=== PATIENT | female | born 1975 | race African-American/Black ===

== ENCOUNTER 2019-11-12 09:11 | Emergency (ER) | payer MEDICAID ==
[~2019-11-12] VITALS: Ht 185.4 cm; Wt 91.6 kg
--- NOTE | 2019-11-12 09:20 | NUR ---
ED Nurse Note: Pt walked into ED from home. Pt reports lower back pain that radiates throughout left leg as well as neck pain and an inability to turn neck properly from side to side. Pt reports that pain started two days ago - cause unknown. Pt resting in room with family. Addendum: 11/12/19 at 0954 by TACHO ED Nurse Note: Pt walked into ED from home. Pt reports lower back pain 10/10 that radiates throughout left leg as well as neck pain and an inability to turn neck properly from side to side. Pt reports that pain started two days ago - cause unknown. Pt resting in room with family.
[2019-11-12] MEDS ORDERED: NKM (09:25)
[2019-11-12 09:32] VITALS: BP 143/82
--- NOTE | 2019-11-12 10:10 | NUR ---
ED Nurse Note: ERMD at bedside.
--- NOTE | 2019-11-12 10:12 | NUR ---
ED Nurse Note: ERMD at bedside assessing pt.
--- NOTE | 2019-11-12 10:20 | NUR ---
ED Nurse Note: ERMD ordered pain medications (see emar) and xray for pt's back. xray pending UA results.
[2019-11-12] MEDS ORDERED: Ketorolac 30mg Inj IV ONE (10:30)
[2019-11-12] MEDS ORDERED: Cyclobenzaprine 10mg Tab ORAL ONE (10:30)
[2019-11-12 10:41] LABS: BASOPHILS % (AUTO) 1.1 % (0.0-2.0); EOSINOPHILS % (AUTO) 3.3 % (0.0-3.0); HEMATOCRIT 42.7 % (37.0-47.0); LYMPHOCYTES % (AUTO) 32.5 % (20.0-45.0); MEAN CORPUSCULAR VOLUME 94 FL (80-99); MONOCYTES % (AUTO) 9.9 % (1.0-10.0); NEUTROPHILS % (AUTO) 53.2 % (45.0-75.0); PLATELET COUNT 241 K/UL (150-450); RED BLOOD COUNT 4.53 M/UL (4.20-5.40); RED CELL DISTRIBUTION WIDTH 11.8 % (11.6-14.8); WHITE BLOOD COUNT 5.3 K/UL (4.8-10.8)
[2019-11-12 10:52] LABS: ANION GAP 7 mmol/L (5-15); BLOOD UREA NITROGEN 8 mg/dL (7-18); CALCIUM 8.9 MG/DL (8.5-10.1); CARBON DIOXIDE 28 MMOL/L (21-32); CHLORIDE 104 MMOL/L (98-107); CREATININE 0.8 MG/DL (0.55-1.30); POTASSIUM 3.8 MMOL/L (3.5-5.1); SODIUM 139 MMOL/L (136-145)
[2019-11-12 10:56] LABS: ALANINE AMINOTRANSFERASE 20 U/L (12-78); ALBUMIN 3.6 G/DL (3.4-5.0); ALBUMIN/GLOBULIN RATIO 0.9 (1.0-2.7); ALKALINE PHOSPHATASE 88 U/L (46-116); ASPARTATE AMINO TRANSFERASE 13 U/L (15-37); BILIRUBIN,TOTAL 0.5 MG/DL (0.2-1.0); CREATINE KINASE 55 U/L (26-308)
[2019-11-12 10:58] LABS: APPEARANCE,URINE CLOUDY; BILIRUBIN, URINE NEGATIVE (NEGATIVE); COLOR,URINE PALE YELLOW; GLUCOSE, URINE (UA) NEGATIVE (NEGATIVE); KETONES,URINE 1+ (NEGATIVE); LEUKOCYTE ESTERASE ,URINE 1+ (NEGATIVE); NITRITE,URINE POSITIVE (NEGATIVE); PH,URINE 6 (4.5-8.0); PROTEIN,URINE NEGATIVE (NEGATIVE); UROBILINOGEN,URINE NORMAL MG/DL (0.0-1.0)
--- NOTE | 2019-11-12 11:20 | NUR ---
ED Nurse Note: Pt taken to xray
--- NOTE | 2019-11-12 11:45 | NUR ---
ED Nurse Note: Pt returned from xray. Pt resting in bed. Awaiting xray results.
--- NOTE | 2019-11-12 12:02 | Diagnostic Imaging Report ---
Indication: Pain Technique: XRAY L [facility]ine [facility] Comparison: None Findings: Bone mineralization within normal limits. There are 5 nonrib-bearing lumbar-type vertebral bodies, assuming 12 paired ribs. Number lordosis is maintained, without evidence of spondylolisthesis. No significant disc space narrowing is appreciated. Question very mild facet arthropathy at L5-S1. No acute lumbar spine fractures identified. Vertebral body heights are maintained. Pelvic phleboliths are noted. Impression: No evidence of acute fracture or traumatic malalignment.
--- NOTE | 2019-11-12 14:13 | Emergency Room Report ---
History of Present Illness General Chief Complaint: Pain Source: Patient Present Illness HPI The patient states that she developed low back pain a couple days ago. She states that the pain also radiates down her left leg. She also gets tingling and numbness in that leg. She denies injury. She denies recent illness. Denies fever or chills. She denies nausea or vomiting. She denies dysuria or hematuria. She denies loss of bowel or bladder control. She denies night sweats. She has no other complaints. Allergies: Coded Allergies: No Known Allergies (Unverified , 11/12/19) Patient History Past Medical History: see triage record Social History: Denies: smoking, alcohol use, drug use Last Menstrual Period: Oct 21, 2019 Now: No Reviewed Nursing Documentation: PMH: Agreed; PSxH: Agreed Nursing Documentation-PMH Past Medical History: No Stated History Review of Systems All Other Systems: negative except mentioned in HPI Physical Exam Vital Signs Date Time Temp Pulse Resp B/P (MAP) Pulse Ox O2 Delivery O2 Flow Rate FiO2 11/12/19 09:19 98.1 65 19 138/84 (102) 98 Room Air Sp02 EP Interpretation: reviewed, normal General Appearance: no apparent distress, alert, GCS 15, non-toxic Head: normocephalic, atraumatic Eyes: bilateral eye normal inspection, bilateral eye PERRL ENT: hearing grossly normal, normal pharynx, no angioedema, normal voice Neck: full range of motion, supple/symm/no masses Respiratory: chest non-tender, lungs clear, normal breath sounds, no respiratory distress, no retraction, no accessory muscle use, speaking full sentences Cardiovascular #1: regular rate, rhythm, no edema Gastrointestinal: normal bowel sounds, non tender, soft, non-distended, no guarding, no rebound Rectal: deferred Musculoskeletal: back normal, normal range of motion, gait/station normal, tender - TTP along the paraspinal m. of the L-spine on the L. TTP along the L. trapezius m. Neurologic: alert, motor strength/tone normal, oriented x3, sensory intact, responsive, speech normal Psychiatric: judgement/insight normal, memory normal, mood/affect normal, no suicidal/homicidal ideation Skin: no rash, normal color Medical Decision Making Diagnostic Impression: Primary Impression: Muscle spasm Additional Impressions: Sciatica UTI (urinary tract infection) ER Course This patient has a clinical presentation consistent with mechanical back pain. There are no red flags on physical exam. The patient denies any concerning features such as trauma, fevers, night sweats, history of malignancy, pain worse at night, IV drug abuse, urinary/fecal incontinence or retention, focal weakness or change in sensation, or refractory pain. Given these pertinent negatives in the history and physical exam an emergent cause of the back pain such as epidural abscess, metastasis to bone, cauda equina syndrome, and fracture is less likely. I also doubt emergent cardiovascular cause of back pain such as aortic dissection a ruptured abdominal aortic aneurysm given patient with equal pulses in all 4 extremities with no diastolic murmur or pulsatile abdominal mass. Lumbar spine x-ray was unremarkable. The patient was counseled that, though unlikely, the possibility of an emergent cause of back pain may still be present and that the patient should return immediately if symptoms persist or worsen. The symptoms are reproducible with movement. Patient had a benign evaluation and neurologic examination. Patient did have a urinalysis that was contaminated unfortunately. As a precaution, I will give the patient a course of antibiotics. I suspect this is related to contamination of the sample. No emergency etiology was identified. Laboratory Tests Test 11/12/19 10:30 White Blood Count 5.3 K/UL (4.8-10.8) Red Blood Count 4.53 M/UL (4.20-5.40) Hemoglobin 14.0 G/DL (12.0-16.0) Hematocrit 42.7 % (37.0-47.0) Mean Corpuscular Volume 94 FL (80-99) Mean Corpuscular Hemoglobin 30.9 PG (27.0-31.0) Mean Corpuscular Hemoglobin Concent 32.7 G/DL (32.0-36.0) Red Cell Distribution Width 11.8 % (11.6-14.8) Platelet Count 241 K/UL (150-450) Mean Platelet Volume 7.4 FL (6.5-10.1) Neutrophils (%) (Auto) 53.2 % (45.0-75.0) Lymphocytes (%) (Auto) 32.5 % (20.0-45.0) Monocytes (%) (Auto) 9.9 % (1.0-10.0) Eosinophils (%) (Auto) 3.3 % (0.0-3.0) H Basophils (%) (Auto) 1.1 % (0.0-2.0) Urine Color Pale yellow Urine Appearance Cloudy Urine pH 6 (4.5-8.0) Urine Specific [place] 1.020 (1.005-1.035) Urine Protein Negative (NEGATIVE) Urine Glucose (UA) Negative (NEGATIVE) Urine Ketones 1+ (NEGATIVE) H Urine Blood 4+ (NEGATIVE) H Urine Nitrite Positive (NEGATIVE) H Urine Bilirubin Negative (NEGATIVE) Urine Urobilinogen Normal MG/DL (0.0-1.0) Urine Leukocyte Esterase 1+ (NEGATIVE) H Urine RBC 20-30 /HPF (0 - 2) H Urine WBC 20-30 /HPF (0 - 2) H Urine Squamous Epithelial Cells Many /LPF (NONE/OCC) H Urine Amorphous Sediment Moderate /LPF (NONE) H Urine Bacteria Many /HPF (NONE) H Urine HCG, Qualitative Negative (NEGATIVE) Sodium Level 139 MMOL/L (136-145) Potassium Level 3.8 MMOL/L (3.5-5.1) Chloride Level 104 MMOL/L (98-107) Carbon Dioxide Level 28 MMOL/L (21-32) Anion Gap 7 mmol/L (5-15) Blood Urea Nitrogen 8 mg/dL (7-18) Creatinine 0.8 MG/DL (0.55-1.30) Estimate Glomerular Filtration Rate > 60 mL/min (>60) Glucose Level 87 MG/DL (74-106) Calcium Level 8.9 MG/DL (8.5-10.1) Total Bilirubin 0.5 MG/DL (0.2-1.0) Aspartate Amino Transferase (AST) 13 U/L (15-37) L Alanine Aminotransferase (ALT) 20 U/L (12-78) Alkaline Phosphatase 88 U/L (46-116) Total Creatine Kinase 55 U/L (26-308) Total Protein 7.6 G/DL (6.4-8.2) Albumin 3.6 G/DL (3.4-5.0) Globulin 4.0 g/dL Albumin/Globulin Ratio 0.9 (1.0-2.7) L Other X-Ray Diagnostic Results Other X-Ray Diagnostic Results : X-Ray ordered: L-spine xray # of Views/Limited Vs Complete: Complete Indication: Pain EP Interpretation: Yes Interpretation: no dislocation, no soft tissue swelling, no fractures Impression: No acute disease Electronically Signed by: Sarahy Dupree DO Last Vital Signs Date Time Temp Pulse Resp B/P (MAP) Pulse Ox O2 Delivery O2 Flow Rate FiO2 11/12/19 11:02 96.6 11/12/19 09:32 65 20 143/82 100 Room Air Status: improved Disposition: HOME, SELF-CARE Condition: Improved Referrals: NON PHYSICIAN (PCP) Sarahy Dupree DO Nov 12, 2019 14:13
[2019-11-12] MEDS ORDERED: IBUPROFEN800 MG ORAL (14:33)
[2019-11-12] MEDS ORDERED: NITROFURANTOIN100 M2 ORAL (14:33)
[2019-11-12] MEDS ORDERED: NORCO 5-325 TA1 EACH ORAL (14:33)
[2019-11-12] MEDS ORDERED: CYCLOBENZAPRINE10 MG ORAL (14:33)
[2019-11-12 14:40] VITALS: BP 132/87
--- NOTE | 2019-11-12 14:40 | NUR ---
ED Nurse Note: Pt cleared by health care Provider for discharge. DC instructions/prescription was given and explained to pt and verbalized understanding of teachings. All medical deviecs such as ID band removed. Pt is AAO x4, ambulatory and left with all personal belongings.
== END 2019-11-12 14:40 | disposition home or self-care (01) ==
LOC: EMR 09:30
DX: M62.830 Muscle spasm of back (principal); M54.30 Sciatica, unspecified side; N39.0 Urinary tract infection, site not specified
CPT/HCPCS: 36415; 72020; 80053; 81003; 81025; 82550; 85025; 87086; 87181; 96361; 96374; J1885; J7030; Z7502; 99284